=== PATIENT | male | born 1990 | race Caucasian/White ===

== ENCOUNTER 2022-06-19 12:42 | Outpatient (CLI) | payer OTHER, SELFPAY ==
--- NOTE | ~2022-06-19 | CT_ITS ---
EXAMINATION: CTA chest PE protocol DATE: 06/19/2022 13:10 INDICATION: Shortness of breath. TECHNIQUE: Computed tomography angiography (CTA) of the chest was performed with 100 mL Omnipaque-350 intravenous contrast timed to evaluate the pulmonary arteries. Coronal maximum intensity projection 3D-reconstructions were created by the technologist. Automated exposure control and iterative reconst ruction technique were employed. The dose-length product was 1054.01 mGy-cm. COMPARISON: None. FINDINGS: There are patchy airspace and groundglass opacities involving all lobes with a lower lung p redominance. No pleural effusion. Cardiomegaly is noted. No pericardial effusion. There is a 7.6 x 3. 4 x 5.7 cm pericardial cyst in right anterior mediastinum. There is mild mediastinal lymphadenopathy. There is no pulmonary embolus. There is mild thoracic spondylosis. IMPRESSION: 1. No pulmonary embolus. 2. Diffuse lung disease with a lower lung predominance, consistent with pneumonia versus pulmonary ed antonella. 3. Cardiomegaly. 4. Mild mediastinal lymphadenopathy, likely reactive. Reviewed, dictated and finalized at location A. IMPRESSION: 1. No pulmonary embolus. 2. Diffuse lung disease with a lower lung predominance, consistent with pneumon ia versus pulmonary edema. 3. Cardiomegaly. 4. Mild mediastinal lymphadenopathy, likely reactive.
== END 2022-06-19 12:43 | disposition home or self-care (01) ==
PROVIDERS: PCP Internal Medicine
DX: R06.02 Shortness of breath (principal); I51.7 Cardiomegaly; J98.4 Other disorders of lung
CPT/HCPCS: 71275; Q9967